=== PATIENT | male | born 1980 | race Caucasian/White ===

== ENCOUNTER 2017-10-14 22:50 | Emergency (ER) | payer SELFPAY ==
[~2017-10-14] VITALS: Ht 185.4 cm; Wt 140.6 kg
--- NOTE | 2017-10-14 23:10 | NUR ---
Seen and evaluated by Dr. García.
[2017-10-14] MEDS ORDERED: KETOROLAC TROMETHAMINE 30 MG INJ IVP ONE (23:15)
[2017-10-14] MEDS ORDERED: METOCLOPRAMIDE HCL 10 MG/2 ML VIAL IV ONE (23:15)
[2017-10-15] MEDS ORDERED: KETOROLAC TROMETHAMINE 30 MG INJ ONE (00:08)
[2017-10-15] MEDS ORDERED: METOCLOPRAMIDE HCL 10 MG/2 ML VIAL ONE (00:08)
--- NOTE | 2017-10-15 01:00 | NUR ---
Patient discharged to home in stable conditon. Written and verbal after care instructions given. Patient verbalizes understanding of instructions.
[2017-10-15 01:06] VITALS: BP 149/85
== END 2017-10-15 01:09 | disposition home or self-care (01) ==
LOC: ER 22:51
DX: S06.0X0A Concussion without loss of consciousness, initial encounter (principal); J32.3 Chronic sphenoidal sinusitis; W01.0XXA Fall on same level from slipping, tripping and stumbling without subsequent striking against object, initial encounter; Y93.89 Activity, other specified; Y92.89 Other specified places as the place of occurrence of the external cause; Y99.8 Other external cause status
CPT/HCPCS: 70450; 72125; A4663; J1885; J2765